=== PATIENT | female | born 1935 | race Caucasian/White ===

== ENCOUNTER 2023-07-09 06:57 | Outpatient (REF) | payer MEDICARE, OTHER, SELFPAY ==
[2023-07-09 11:12] LABS: MANUAL DIFF FLAG NO
[2023-07-09 11:41] LABS: Basophils Absolute Auto 0.1 X10*3/uL (0.0-0.2); Basophils Percent Auto 0.7 % (0-2); Eosinophils Absolute Auto 0.5 X10*3/uL (0.0-0.4); Eosinophils Percent Auto 5.3 % (0-4); Hematocrit 43.3 % (37.0-47.0); Hemoglobin 13.8 g/dl (12.0-16.0); Imm Gran Abs Auto 0.04 X10*3/uL (0.00-0.03); Imm Gran Pct Auto 0.5 % (0.0-0.4); Lymphocytes Absolute Auto 2.1 X10*3/uL (1.2-4.9); Lymphocytes Percent Auto 24.3 % (20-40); Mean Corpuscular HGB Conc 31.9 g/dl (31.0-35.0); Mean Corpuscular Hemoglobin 30.8 pg (27.0-33.0); Mean Corpuscular Volume 96.7 fL (80.0-98.0); Mean Platelet Volume 11.3 fL (9.4-12.3); Monocytes Absolute Auto 0.8 X10*3/uL (0.1-1.2); Monocytes Percent Auto 9.2 % (2-11); Neutrophils Absolute Auto 5.1 x10*3/uL (2.0-8.3); Platelet Count 248 X10*3/uL (160-400); Red Blood Count 4.48 X10*6/uL (4.20-5.50); Red Cell Distribution Width 13.2 % (11.0-16.0); White Blood Count 8.4 X10*3/uL (4.8-10.8)
[2023-07-09 12:06] LABS: Alanine Aminotransferase 18 U/L (0-31); Albumin Level 3.8 g/dL (3.5-5.0); Alkaline Phosphatase 114 U/L (39-117); Anion Gap 12 (12-20); Aspartate Amino Transferase 22 U/L (5-31); Bilirubin Total 0.7 mg/dL (0.0-1.0); Blood Urea Nitrogen 16 mg/dL (9-16); Carbon Dioxide 25 mmol/L (22-29); Chloride 106 mmol/L (96-108); Cholesterol 139 mg/dL; Estimated Glomerular Filt Rate > 60; Glucose Random 91 mg/dL (60-115); HDL Cholesterol 45 mg/dL; LDL Cholesterol Calculated 83 mg/dl; Potassium 4.3 mmol/L (3.3-5.1); Sodium 139 mmol/L (135-145); TSH reflex Free T4 1.12 uIU/mL (0.32-4.0); Total Protein 6.9 g/dL (6.5-8.0); Triglycerides 58 mg/dL
== END 2023-07-09 06:58 | disposition home or self-care (01) ==
LOC: HO.HMGCLDS 06:57
PROVIDERS: PCP Internal Medicine; Visit Provider Internal Medicine
DX: E03.9 Hypothyroidism, unspecified (principal); E78.00 Pure hypercholesterolemia, unspecified; I10 Essential (primary) hypertension
CPT/HCPCS: 36415; 80053; 80061; 84443; 85025

== ENCOUNTER 2023-07-14 10:16 | Outpatient (AMB) | payer MEDICARE, SELFPAY ==
--- NOTE | 2023-07-14 10:17 | MHC.OFFVIS ---
Intake Vital Signs 07/14/23 10:18 Height 4 ft 11 in Weight 112 lb 6.972 oz BMI 22.7 BP 126/62 Blood Pressure Location Lt brachial Position Sitting Pulse 82 Pulse Source Doppler Pulse Oximetry (%) 96 Oxygen Delivery Method Room Air Intake Visit Reasons: pulmonary nodules Allergies Penicillins Allergy (Mild, Verified 07/14/23 10:22) UNKNOWN Sulfa (Sulfonamide Antibiotics) Allergy (Mild, Verified 07/14/23 10:22) UNKNOWN penicillin V Allergy (Unknown, Verified 07/14/23 10:22) rash tiotropium [Spiriva with HandiHaler] Allergy (Unknown, Verified 07/14/23 10:22) unknown alendronate sodium [Fosamax] Adverse Reaction (Unknown, Verified 07/14/23 10:22) GI upset simvastatin Adverse Reaction (Unknown, Verified 07/14/23 10:22) hepatoxicity HPI pulmonary nodules HPI Details 87-year-old lady, former 30+ pack-year smoker, quit over 30 years prior, with prior history of community-acquired pneumonia requiring hospitalization in August of 2021, symptomatically improved, however patient has had a CT chest that shows incomplete resolution of her prior pneumonic infiltrates and a new cystic lesion at the site of prior dense infiltrate.? After that patient has had two follow-up CT scans that shows significant improvement in underlying findings.? She continues to use Symbicort and albuterol MDI with good control of her underlying symptoms.? She denies any recent exacerbations. [facility] Medical History Age related osteoporosis Anemia COPD (chronic obstructive pulmonary disease) COPD (chronic obstructive pulmonary disease) Heart murmur Hypothyroidism Macular degeneration Subcutaneous mass Trigger finger, left Surgical History History of carpal tunnel release History of hemiarthroplasty of left hip Social History Household Members: None Household Members Other:: Daughter lives upstairs Housing: House Are you a primary home care provider to a significant other at home: No Do you presently have visiting nurse or other home services: No Alcohol intake: never Patient Tobacco Use Status: Former Tobacco user service: No Current occupational status: retired Current occupation: Right Handed Review of Systems Const Denies daytime sleepiness, Denies excessive sweating, Denies fatigue, Denies fever(s), Denies lethargy, Denies malaise, Denies night sweats, Denies snoring and Denies weight loss Eyes Denies blurry vision and Denies itchy eyes ENT Denies nasal congestion, Denies post nasal drip, Denies sinus pain, Denies sinus pressure and Denies other ( Thrush) Card Denies chest pain, Denies pedal edema, Denies dyspnea, Denies orthopnea and Denies paroxysmal nocturnal dyspnea Resp Denies cough, Denies hemoptysis, Denies excessive phlegm production, Denies dyspnea, Denies snoring and Denies wheezing GI Denies abdominal pain and Denies heartburn Musc Denies myalgias, Denies arthralgias and Denies joint swelling Skin/Breast Denies rash Neuro Denies memory loss and Denies seizure-like activity Psych Denies abnormal sleep pattern, Denies anxiety and Denies memory loss Endo Denies excessive sweating, Denies fatigue and Denies heat intolerance Martín/Lymph Denies easy bruising Aller/Immun Denies itchy eyes, Denies seasonal rhinorrhea and Denies wheezing Physical Exam Vital Signs: Last Vital Signs Pulse 82 07/14/23 10:18 BP 126/62 07/14/23 10:18 Pulse Ox 96 07/14/23 10:18 Oxygen Delivery Method Room Air 07/14/23 10:18 BMI result Body Mass Index 22.7 Const General: no acute distress and alert Nutritional Appearance: not obese Orientation/consciousness: Other orientation findings ( oriented) HEENT Head: Yes atraumatic Eyes General: appearance normal, both eyes and all related structures Sclerae: sclerae normal EOM: EOMs intact bilaterally Neck Neck: Yes supple Lymphatic: no lymphadenopathy noted Resp Effort & Inspection: normal respiratory effort and no use of accessory muscles Auscultation: clear to auscultation bilaterally Cardio Rate: regular rate Rhythm: regular rhythm Heart sounds: no gallops, no murmurs and no rubs Skin General skin exam: other ( warm) Extrem General: No clubbing, No cyanosis and No edema Assessment & Plan Assessment & Plan (1) Emphysema lung: Code(s): J43.9 - Emphysema, unspecified Plan: Well controlled on current regimen of Symbicort and albuterol MDI/nebs. Continue current regimen. (2) Abnormal CT scan, chest: Code(s): R93.89 - Abnormal findings on diagnostic imaging of other specified body structures Plan: Results of a 2nd follow-up CT chest reviewed, continues improvement in dominant pulmonary nodule and no changing cystic disease. No further imaging follow-up is required. Coding Level of Care Code Est Pt Level 4 (95886) Diagnoses Emphysema lung J43.[address] scan, chest R93.89
[2023-07-14 10:18] VITALS: BP 126/62; PULSE 82; O2SAT 96; BMI 22.7
== END 2023-07-14 10:34 | disposition home or self-care (01) ==
PROVIDERS: PCP Internal Medicine; Visit Provider Internal Medicine Pulmonary Disease
DX: J43.9 Emphysema, unspecified (principal); R93.89 Abnormal findings on diagnostic imaging of other specified body structures
CPT/HCPCS: 99214

== ENCOUNTER → 2023-07-14 10:16 | Outpatient (BNVA) | payer MEDICARE, OTHER, SELFPAY | PROVIDERS: PCP Internal Medicine; Visit Provider Internal Medicine Pulmonary Disease | DX: J43.9 Emphysema, unspecified (principal); R93.89 Abnormal findings on diagnostic imaging of other specified body structures | CPT/HCPCS: 99212 ==

== ENCOUNTER 2023-08-09 09:06 | Outpatient (AMB) | payer MEDICARE, SELFPAY ==
--- NOTE | 2023-08-09 09:12 | A.OFFVIS_ITS ---
Intake Intake Visit Reasons: OV- Primary osteoarthritis, right shoulder Intake Note: The patient agreed to use of a biomedical engineering internship during this encounter. Scribed for Dr. Tirso Ramos by Shila Espitia, biomedical engineering internship, on 08/09/2023 at 9:38 am EST. Allergies Penicillins Allergy (Mild, Verified 08/09/23 09:29) UNKNOWN Sulfa (Sulfonamide Antibiotics) Allergy (Mild, Verified 08/09/23 09:29) UNKNOWN penicillin V Allergy (Unknown, Verified 08/09/23 09:29) rash tiotropium [Spiriva with HandiHaler] Allergy (Unknown, Verified 08/09/23 09:29) unknown alendronate sodium [Fosamax] Adverse Reaction (Unknown, Verified 08/09/23 09:29) GI upset simvastatin Adverse Reaction (Unknown, Verified 08/09/23 09:29) hepatoxicity HPI OV- Primary osteoarthritis, right shoulder HPI Details Martha is an 87 year old right hand dominant female who presents today for a follow up of her right shoulder OA. Last injection was done on 10/13/2021 in the left knee and right shoulder. Patient reports that this injection was helpful and he would like to repeat injection today. She is also complaining of left knee pain today. Martha Stout is an 87 year old right hand dominant female who presents today for a follow up of her right shoulder OA. States she is active and tries to walk everyday. States she is experiencing pain in right shoulder and has trouble lifting arm up. States she is interested injections in right shoulder and left knee and last time she received an injection was her last visit in office. States her pain does not wake her up at night but can not put pressure on it. [facility] Medical History Age related osteoporosis Anemia COPD (chronic obstructive pulmonary disease) COPD (chronic obstructive pulmonary disease) Heart murmur Hypothyroidism Macular degeneration Subcutaneous mass Trigger finger, left Surgical History History of carpal tunnel release History of hemiarthroplasty of left hip Social History (Reviewed 07/14/23 @ 10:23 by Zakiya Magallanes [facility]) Household Members: None Household Members Other:: Daughter lives upstairs Housing: House Are you a primary furnace caretaker to a significant other at home: No Do you presently have visiting nurse or other home services: No Alcohol intake: never Patient Tobacco Use Status: Former Tobacco user service: No Current occupational status: retired Current occupation: Right Handed Physical Exam Extrem Other: Minimal ER right shoulder without pain. pain with abduction. Left knee ttp medial joint line. Office Procedures Joint Injection/Drain Joint Injection/Drain Details: Injected 1 mL of Decadron and 3 mL 1% lidocaine and 3 mL of 0.25% Marcaine. Site was prepped using aseptic technique. Patient tolerated the procedure well. Primary Site: right shoulder Secondary Site: left knee Coding - Large joint - Glenohumeral/Tronchanteric Bursa/Intraarticular Procedure code (CPT) selection complete Results Reviewed Results Reviewed: 08/09/23 09:38 BUPivacaine MPF 0.25 % [Sensorcaine-MPF 0.25% 10 ML] 10 ml .ROUTE .STK-MED ONE Lidocaine HCl 1 % [Xylocaine 1 %] 2 ml .ROUTE .STK-MED ONE Lidocaine HCl 2 % MPF [Xylocaine 2 % MPF] 5 ml .ROUTE .STK-MED ONE dexAMETHasone sod phosphate [Decadron] 4 mg .ROUTE .STK-MED ONE I personally reviewed relevant radiographs. Assessment & Plan Assessment & Plan (1) Primary osteoarthritis, right shoulder: Code(s): M19.011 - Primary osteoarthritis, right shoulder Plan: Injection (2) Primary osteoarthritis of left knee: Code(s): M17.12 - Unilateral primary osteoarthritis, left knee Plan: injection Coding Level of Care Code Est Pt Level 3 (57736) Diagnoses Primary osteoarthritis, right shoulder M19.011 Primary osteoarthritis of left knee M17.12 CPT Codes Coding - Large joint: 90217 - Large joint ([id number]) Coding - Joint 7: - Glenohumeral/Tronchanteric Bursa/Intraarticular ([id number])
== END 2023-08-09 10:41 | disposition home or self-care (01) ==
PROVIDERS: PCP Internal Medicine; Visit Provider Orthopaedic Surgery
DX: M19.011 Primary osteoarthritis, right shoulder (principal); M17.12 Unilateral primary osteoarthritis, left knee
CPT/HCPCS: 20610; 99213

== ENCOUNTER → 2023-08-09 09:06 | Outpatient (BNVA) | payer MEDICARE, SELFPAY | PROVIDERS: PCP Internal Medicine; Visit Provider Orthopaedic Surgery | DX: M19.011 Primary osteoarthritis, right shoulder (principal); M17.12 Unilateral primary osteoarthritis, left knee | CPT/HCPCS: 20610; 99212; J1100 ==

== ENCOUNTER 2023-10-11 08:48 | Outpatient (AMB) | payer MEDICARE, SELFPAY ==
--- NOTE | 2023-10-11 08:51 | MHC.OFFVIS ---
Intake Vital Signs 10/11/23 08:51 Height 4 ft 11 in Intake Visit Reasons: OV- Primary osteoarthritis, right shoulder Intake Note: Martha is an 87 year old right hand dominant female who presents today for a follow up of her right shoulder OA. Last injection was done on 08/09/23. Patient rpeorts that this injection was not helpful. She explains that she has pain at the base of bicep that radiates up to shoulder. She has pain and limited painful ROM. Allergies Penicillins Allergy (Mild, Verified 10/11/23 08:52) UNKNOWN Sulfa (Sulfonamide Antibiotics) Allergy (Mild, Verified 10/11/23 08:52) UNKNOWN penicillin V Allergy (Unknown, Verified 10/11/23 08:52) rash tiotropium [Spiriva with HandiHaler] Allergy (Unknown, Verified 10/11/23 08:52) unknown alendronate sodium [Fosamax] Adverse Reaction (Unknown, Verified 10/11/23 08:52) GI upset simvastatin Adverse Reaction (Unknown, Verified 10/11/23 08:52) hepatoxicity HPI OV- Primary osteoarthritis, right shoulder HPI Details Martha Stout is an 87 year old right hand dominant female who presents today for a follow up of her right shoulder OA. States she is experiencing pain in right shoulder which radiates into her biceps, and has trouble lifting arm up. She found no relief from her previous injection on 08/09/23, and would like to try a repeat injection today. [facility] Medical History Age related osteoporosis Anemia COPD (chronic obstructive pulmonary disease) COPD (chronic obstructive pulmonary disease) Heart murmur Hypothyroidism Macular degeneration Subcutaneous mass Trigger finger, left Surgical History History of carpal tunnel release History of hemiarthroplasty of left hip Social History Household Members: None Household Members Other:: Daughter lives upstairs Housing: House Are you a primary care management specialist to a significant other at home: No Do you presently have visiting nurse or other home services: No Alcohol intake: never Patient Tobacco Use Status: Former Tobacco user service: No Current occupational status: retired Current occupation: Right Handed Review of Systems Const All systems reviewed & are unremarkable except as noted in HPI and below Physical Exam Const General: no acute distress, alert and awake Orientation/consciousness: patient oriented x3 HEENT Head: Yes normocephalic and Yes atraumatic Eyes EOM: EOMs intact bilaterally Resp Effort & Inspection: normal respiratory effort and able to speak in complete sentences Cardio Jugular venous distension: no JVD Skin General skin exam: turgor normal Rashes: no rashes Neuro General: patient oriented x3 Extrem Other: Minimal ER right shoulder without pain. pain with abduction. Psych Appearance: grossly normal Affect: normal affect Attitude: cooperative Office Procedures Joint Injection/Drain Joint Injection/Drain Details: Injected 1 mL of Decadron and 3 mL 1% lidocaine and 3 mL of 0.25% Marcaine. Site was prepped using aseptic technique. Patient tolerated the procedure well. Primary Site: right shoulder Approach Used: posterolateral Coding - Large joint Procedure code (CPT) selection complete Assessment & Plan Assessment & Plan (1) Primary osteoarthritis, right shoulder: Code(s): M19.011 - Primary osteoarthritis, right shoulder Plan: This is an 87 year old woman with right shoulder OA. She has pain with daily activity, worse at night, and limited ROM. She is not a surgical candidate, is unable to take NSAIDs, and found no relief from her previous injection on 08/09/23. I discussed her diagnosis and treatment options. I injected her right shoulder today, which she tolerated well. She can follow up prn. Plan Scribed for Tirso Ramos MD by Ramírez Hahn, phlebotomist medical lab assistant, on 10/11/23 at 9:15 AM, EST. Coding Level of Care Code Est Pt Level 3 (49335) Diagnoses Primary osteoarthritis, right shoulder M19.011 CPT Codes Coding - Large joint: 46814 - Large joint ([id number])
== END 2023-10-11 09:28 | disposition home or self-care (01) ==
PROVIDERS: PCP Internal Medicine; Visit Provider Orthopaedic Surgery
DX: M19.011 Primary osteoarthritis, right shoulder (principal)
CPT/HCPCS: 20610; 99213

== ENCOUNTER → 2023-10-11 08:48 | Outpatient (BNVA) | payer MEDICARE, SELFPAY | PROVIDERS: PCP Internal Medicine; Visit Provider Orthopaedic Surgery | DX: M19.011 Primary osteoarthritis, right shoulder (principal) | CPT/HCPCS: 20610; 99212; J0665; J1100 ==

== ENCOUNTER 2023-11-12 20:50 | Emergency (ER) | payer MEDICARE, SELFPAY ==
[2023-11-12 21:05] VITALS: BP 175/101; PULSE 88; RESP 16; TEMP 36.9; O2SAT 94; BMI 22.2
[2023-11-12 21:55] LABS: MANUAL DIFF FLAG NO
[2023-11-12 22:04] LABS: Basophils Absolute Auto 0.1 X10*3/uL (0.0-0.2); Basophils Percent Auto 0.7 % (0-2); Eosinophils Absolute Auto 0.5 X10*3/uL (0.0-0.4); Eosinophils Percent Auto 6.3 % (0-4); Hematocrit 41.7 % (37.0-47.0); Hemoglobin 13.3 g/dl (12.0-16.0); Imm Gran Abs Auto 0.03 X10*3/uL (0.00-0.03); Imm Gran Pct Auto 0.4 % (0.0-0.4); Lymphocytes Percent Auto 27.1 % (20-40); Mean Corpuscular HGB Conc 31.9 g/dl (31.0-35.0); Mean Corpuscular Hemoglobin 30.3 pg (27.0-33.0); Mean Platelet Volume 10.7 fL (9.4-12.3); Monocytes Absolute Auto 0.8 X10*3/uL (0.1-1.2); Monocytes Percent Auto 11.5 % (2-11); Neutrophils Absolute Auto 3.9 x10*3/uL (2.0-8.3); Platelet Count 224 X10*3/uL (160-400); Red Blood Count 4.39 X10*6/uL (4.20-5.50); Red Cell Distribution Width 13.4 % (11.0-16.0); White Blood Count 7.3 X10*3/uL (4.8-10.8)
[2023-11-12 22:13] LABS: Alanine Aminotransferase 25 U/L (0-31); Albumin Level 4.1 g/dL (3.5-5.0); Alkaline Phosphatase 127 U/L (39-117); Anion Gap 11 (12-20); Aspartate Amino Transferase 29 U/L (5-31); Bilirubin Total 0.4 mg/dL (0.0-1.0); Blood Urea Nitrogen 15 mg/dL (9-16); Calcium 9.4 mg/dL (8.4-10.2); Carbon Dioxide 26 mmol/L (22-29); Chloride 106 mmol/L (96-108); Creatinine Clr Calc Pharmacy 33.5; Estimated Glomerular Filt Rate > 60; Glucose Random 90 mg/dL (60-115); Potassium 4.3 mmol/L (3.3-5.1); Sodium 139 mmol/L (135-145); Total Protein 7.2 g/dL (6.5-8.0)
[2023-11-12] MEDS: Silver Nitrate Applicator STICK..EA. 1 APPL TOPICAL (22:53)
[2023-11-12 22:54] VITALS: BP 172/82; PULSE 88; RESP 20; O2SAT 98
--- NOTE | 2023-11-12 22:54 | ED_ITS ---
History of Present Illness General Chief Complaint: Epistaxis Stated Complaint: Nose bleed Time Seen by Provider: 11/12/23 22:33 Source: patient Mode of arrival: ambulatory Limitations: no limitations History of Present Illness HPI Narrative: Patient history of frequent nosebleeds for last few months not on any anticoagulation except for aspirin is usually wakes up with small amount of low today left nose started bleeding since afternoon did not stop. Related Data Home Medications Medication Instructions Recorded Confirmed albuterol sulfate 90 mcg/actuation 2 puff PO TID 08/23/20 03/02/23 aerosol inhaler atorvastatin 40 mg tablet 40 mg PO BEDTIME 08/23/20 03/02/23 levothyroxine 75 mcg tablet 75 mcg PO DAILY 08/23/20 03/02/23 omeprazole 20 mg capsule,delayed 20 mg PO BID 08/23/20 03/02/23 release calcium carbonate 600 mg-vitamin 1 cap PO BEDTIME 09/13/20 03/02/23 D3 5 mcg (200 unit) capsule (Calcium 600 + D(3)) albuterol sulfate 2.5 mg/3 mL 1 amp inhalation Q4H PRN wheezing 01/17/21 03/02/23 (0.083 %) solution for nebulization budesonide-formoterol HFA 160 2 puff inhalation BID 01/17/21 03/02/23 mcg-4.5 mcg/actuation aerosol inhaler (Symbicort) PreserVision AREDS-2 1 cap PO BID 08/23/21 03/02/23 aspirin 81 mg capsule 81 mg PO DAILY 08/23/21 03/02/23 amlodipine 5 mg tablet 5 mg PO DAILY 10/13/21 03/02/23 trimethoprim 100 mg tablet 100 mg PO DAILY 09/25/22 03/02/23 artifi.tears(hypromellose)(PF) 0.3 2 drp ophthalmic (eye) Q6H PRN Dry 11/03/22 03/02/23 % eye drops Eye(S) ascorbic acid (vitamin C) 500 mg 1 tab PO DAILY 11/03/22 03/02/23 tablet (Vitamin C) cyanocobalamin (vitamin B-12) 1,000 mcg PO DAILY 11/03/22 03/02/23 1,000 mcg tablet ferrous gluconate 324 mg (37.5 mg 1 tab PO DAILY 11/03/22 03/02/23 iron) tablet folic acid 1 mg tablet 1 mg PO DAILY 11/03/22 03/02/23 Allergies Allergy/AdvReac Type Severity Reaction Status Date / Time Penicillins Allergy Mild UNKNOWN Verified 10/11/23 08:52 Sulfa (Sulfonamide Allergy Mild UNKNOWN Verified 10/11/23 08:52 Antibiotics) penicillin V Allergy Unknown rash Verified 10/11/23 08:52 tiotropium Allergy Unknown unknown Verified 10/11/23 08:52 [Spiriva with HandiHaler] alendronate sodium [Fosamax] AdvReac Unknown GI upset Verified 10/11/23 08:52 simvastatin AdvReac Unknown hepatoxicit Verified 10/11/23 08:52 y Review of Systems 2 Review of Systems: Yes all other systems are reviewed and are negative [facility] Past Medical History Medical History COPD (chronic obstructive pulmonary disease) Subcutaneous mass Trigger finger, left Anemia Heart murmur Age related osteoporosis COPD (chronic obstructive pulmonary disease) Macular degeneration Hypothyroidism Surgical History History of hemiarthroplasty of left hip History of carpal tunnel release Social History Social History Household Members: None Household Members Other:: Daughter lives upstairs Housing: House Are you a primary care information associate to a significant other at home: No Do you presently have visiting nurse or other home services: No Alcohol intake: never Patient Tobacco Use Status: Former Tobacco user Advance Directives: Yes Advance Directives on File: No service: No Current occupational status: retired Current occupation: Right Handed Physical Exam 2 Vital Signs: Vital Signs: Last Vital Signs Temp 98.5 F 11/12/23 21:05 Pulse 88 11/12/23 22:54 Resp 20 11/12/23 22:54 BP 172/82 H 11/12/23 22:54 Pulse Ox 98 11/12/23 22:54 O2 Del Method Room Air 11/12/23 22:54 BMI result Body Mass Index 22.2 Appearance: Alert. Oriented X3. No acute distress. Eyes: No pallor or icterus ENT: Pharynx normal. Oral Mucosa moist blood clot in left nostril no active bleeding Neck: Normal inspection. Neck supple. CVS: Normal heart rate and rhythm. Pulses normal. Respiratory: No respiratory distress. Equal air entry bilateral, Medications Administered Discontinued Medications Generic Name Dose Route Start Last Admin Trade Name Eusebio PRN Reason Stop Dose Admin Silver Nitrate 1 appl 11/12/23 22:47 11/12/23 22:53 Silver Nitrate Applicator Stick..Ea. TOPICAL 11/12/23 22:48 1 appl ONCE ONE Administration Medical Decision Making Medical Decision Making [facility] Narrative: Patient with frequent anterior nosebleed patient in the left nostril no active bleeding in the ER but had blood clots which was removed by blowing there wasa small area in the anterior septal which seems like source of bleeding which was cauterized using silver nitrate Lab Data [facility] Lab Attestation statement: I reviewed the patient's lab results. 11/12/23 21:47 11/12/23 21:47 Labs: Lab Results 11/12/23 Range/Units 21:47 WBC 7.3 (4.8-10.8) X10*3/uL RBC 4.39 (4.20-5.50) X10*6/uL Hgb 13.3 (12.0-16.0) g/dl Hct 41.7 (37.0-47.0) % MCV 95.0 (80.0-98.0) fL MCH 30.3 (27.0-33.0) pg MCHC 31.9 (31.0-35.0) g/dl RDW 13.4 (11.0-16.0) % Plt Count 224 (160-400) X10*3/uL MPV 10.7 (9.4-12.3) fL Immature Gran % (Auto) 0.4 (0.0-0.4) % Neut % (Auto) 54.0 (45-73) % Lymph % (Auto) 27.1 (20-40) % [place] % (Auto) 11.5 H (2-11) % Eos % (Auto) 6.3 H (0-4) % Baso % (Auto) 0.7 (0-2) % Lymph # (Auto) 2.0 (1.2-4.9) X10*3/uL [place] # (Auto) 0.8 (0.1-1.2) X10*3/uL Eos # (Auto) 0.5 H (0.0-0.4) X10*3/uL Baso # (Auto) 0.1 (0.0-0.2) X10*3/uL Abs Immat Gran (auto) 0.03 (0.00-0.03) X10*3/uL Absolute Neuts (auto) 3.9 (2.0-8.3) x10*3/uL Absolute Nucleated RBC 0.000 (0.0-0.012) X10*3/uL Nucleated RBC % (auto) 0.0 (0.0-0.2) /100WBC Sodium 139 (135-145) mmol/L Potassium 4.3 (3.3-5.1) mmol/L Chloride 106 (96-108) mmol/L Carbon Dioxide 26 (22-29) mmol/L Anion Gap 11 L (12-20) BUN 15 (9-16) mg/dL Creatinine 0.79 (0.5-1.4) mg/dL Estim Creat Clear Calc 33.5 Estimated GFR > 60 Random Glucose 90 (60-115) mg/dL Calcium 9.4 (8.4-10.2) mg/dL Total Bilirubin 0.4 (0.0-1.0) mg/dL AST 29 (5-31) U/L ALT 25 (0-31) U/L Alkaline Phosphatase 127 H (39-117) U/L Total Protein 7.2 (6.5-8.0) g/dL Albumin 4.1 (3.5-5.0) g/dL Procedures Epistaxis Control Time Out Performed: Yes Nostril: Yes left Direct inspection: Yes anterior source identified Direct inspection method: Yes otoscope Clots removed by: Yes blowing nose Epistaxis treatment: Yes silver nitrate cautery Results of treatment: Yes bleeding controlled and Yes treatment well tolerated Complications: Yes none Discharge Plan Discharge Clinical Impression: Acute anterior epistaxis Patient Disposition: Home, Self-Care Instructions: Nosebleed (ED) Additional Instructions: Local care as advised Follow-up with ENT if epistaxis continues Prescriptions: No Action Calcium 600 + D(3) 600 mg calcium- 200 unit Capsule 1 cap PO BEDTIME albuterol sulfate 2.5 mg /3 mL (0.083 %) solution for nebulization 1 amp inhalation Q4H PRN (Reason: wheezing) budesonide-formoterol [Symbicort] 160-4.5 mcg/actuation HFA aerosol inhaler 2 puff inhalation BID ascorbic acid (vitamin C) [Vitamin C] 500 mg tablet 1 tab PO DAILY ferrous gluconate 324 mg (37.5 mg iron) tablet 1 tab PO DAILY cyanocobalamin (vitamin B-12) 1,000 mcg Tablet 1,000 mcg PO DAILY folic acid 1 mg Tablet 1 mg PO DAILY artifi.tears(hypromellose)(PF) 0.3 % Drops 2 drp OPHTHALMIC (EYE) Q6H PRN (Reason: Dry Eye(S)) aspirin 81 mg Capsule 81 mg PO DAILY PreserVision AREDS-2 1 cap PO BID albuterol sulfate 90 mcg/actuation HFA aerosol inhaler 2 puff PO TID omeprazole 20 mg capsule,delayed release(DR/EC) 20 mg PO BID levothyroxine 75 mcg tablet 75 mcg PO DAILY atorvastatin 40 mg tablet 40 mg PO BEDTIME amlodipine 5 mg tablet 5 mg PO DAILY trimethoprim 100 mg tablet 100 mg PO DAILY Hold Instructions: Resume on 11/09/22. Referrals: Isma Ledezma [Physician] - 1 week
== END 2023-11-12 23:00 | disposition home or self-care (01) ==
PROVIDERS: Emergency Provider Internal Medicine; PCP Internal Medicine
DX: R04.0 Epistaxis (principal); Z79.82 Long term (current) use of aspirin
CPT/HCPCS: 36415; 80053; 85025; 99283

== ENCOUNTER 2024-02-18 09:56 | Outpatient (AMB) | payer MEDICARE, SELFPAY ==
[2024-02-18 10:10] VITALS: BMI 22.2
--- NOTE | 2024-02-18 10:10 | A.OFFVIS_ITS ---
Intake Vital Signs 02/18/24 10:10 Height 4 ft 11 in Weight 110 lb BMI 22.2 Intake Visit Reasons: OV-Left knee pain follow up Intake Note: Martha is an 88 year old female who presents today for a follow up of her left knee OA. Last Injection was administered on 08/09/23. Hx of right shoulder injection 10/11/23. She explains that the left knee was swollen, but has resolved. She does complain of right shoulder pain, the injection was only helpful for a few days. Allergies Penicillins Allergy (Mild, Verified 02/18/24 10:13) UNKNOWN Sulfa (Sulfonamide Antibiotics) Allergy (Mild, Verified 02/18/24 10:13) UNKNOWN penicillin V Allergy (Unknown, Verified 02/18/24 10:13) rash tiotropium [Spiriva with HandiHaler] Allergy (Unknown, Verified 02/18/24 10:13) unknown alendronate sodium [Fosamax] Adverse Reaction (Unknown, Verified 02/18/24 10:13) GI upset simvastatin Adverse Reaction (Unknown, Verified 02/18/24 10:13) hepatoxicity HPI OV-Left knee pain follow up HPI Details Martha is an 88 year old female who presents today for a follow up of her left knee OA. Last Injection was administered on 08/09/23. Hx of right shoulder injection 10/11/23. She explains that the left knee was swollen, but has resolved. She does complain of right shoulder pain, the injection was only helpful briefly. [facility] Medical History COPD (chronic obstructive pulmonary disease) Subcutaneous mass Trigger finger, left Anemia Heart murmur Age related osteoporosis COPD (chronic obstructive pulmonary disease) Macular degeneration Hypothyroidism Surgical History History of hemiarthroplasty of left hip History of carpal tunnel release Social History Household Members: None Household Members Other:: Daughter lives upstairs Housing: House Are you a primary care taker to a significant other at home: No Do you presently have visiting nurse or other home services: No Alcohol intake: never Patient Tobacco Use Status: Former Tobacco user service: No Current occupational status: retired Current occupation: Right Handed Physical Exam Vital Signs: BMI result Body Mass Index 22.2 Extrem Other: Right shoulder with + Hawkin's and Neer. Scapular recruitment with abduction. ER to 45 bilaterally. Left knee with no effusion TTP medial compartment Office Procedures Joint Injection/Drain Joint Injection/Drain Details: Injected 1 mL of Decadron and 3 mL 1% lidocaine and 3 mL of 0.25% Marcaine. Site was prepped using aseptic technique. Patient tolerated the procedure well. Primary Site: right shoulder Secondary Site: left knee Coding 73435 - Large joint 24774 - Glenohumeral/Tronchanteric Bursa/Intraarticular Procedure code (CPT) selection complete Assessment & Plan Assessment & Plan (1) Primary osteoarthritis of left knee: Code(s): M17.12 - Unilateral primary osteoarthritis, left knee Plan: Injected left knee. Continue activity as tolerated (2) Primary osteoarthritis, right shoulder: Code(s): M19.011 - Primary osteoarthritis, right shoulder Plan: Injected right shoulder SAS. Continue activity as tolerated. Coding Level of Care Code Est Pt Level 4 (73968) Diagnoses Primary osteoarthritis of left knee M17.12 Primary osteoarthritis, right shoulder M19.011 CPT Codes Coding - 34906 Large joint: 90006 - Large joint ([id number]) Coding - Joint 7: 24515 - Glenohumeral/Tronchanteric Bursa/Intraarticular ([id number])
== END 2024-02-18 11:26 | disposition home or self-care (01) ==
PROVIDERS: PCP Internal Medicine; Visit Provider Orthopaedic Surgery
DX: M17.12 Unilateral primary osteoarthritis, left knee (principal); M19.011 Primary osteoarthritis, right shoulder
CPT/HCPCS: 20610; 99214

== ENCOUNTER → 2024-02-18 09:56 | Outpatient (BNVA) | payer MEDICARE, SELFPAY | PROVIDERS: PCP Internal Medicine; Visit Provider Orthopaedic Surgery | DX: M17.12 Unilateral primary osteoarthritis, left knee (principal); M19.011 Primary osteoarthritis, right shoulder | CPT/HCPCS: 20610; 99212; J0665; J1100 ==

== ENCOUNTER 2024-04-12 07:35 | Emergency (ER) | payer MEDICARE, SELFPAY ==
[2024-04-12 07:40] VITALS: BP 151/71; PULSE 82; RESP 16; TEMP 36.8; O2SAT 96; BMI 22.2
--- NOTE | 2024-04-12 08:46 | ED.GENADULT ---
HPI - General Adult General Chief complaint: Skin/Abscess/Foreign Body Stated complaint: skin on arm pushed together Time Seen by Provider: 04/12/24 08:46 Source: patient and family Mode of arrival: ambulatory Limitations: no limitations History of Present Illness ED Provider: Eric Lyles NP HPI narrative: Patient is an 88-year-old female with history of COPD, anemia, hypothyroidism presenting to the emergency department with complaint of skin tear to right forearm. Patient and daughter state that she was putting trash in the trash bin prior to arrival, when the wooden lid fell onto her right forearm. They applied mupirocin ointment that patient had left over from a prior skin tear and apply dressings. Patient complains of pain to the area. She is not anticoagulated, just on daily aspirin. Daughter called PCP office and last tetanus vaccine was 2015. complaint: right forearm injury Onset (ago): minute(s) Location: right and upper extremity Severity: moderate Quality: burning Pain Consistency: colicky Relieving factors: rest Exacerbating factors: other (palpation) Associated symptoms: denies other symptoms Treatments prior to arrival: other Related Data Home Medications ?Medication ?Instructions ?Recorded ?Confirmed albuterol sulfate 90 mcg/actuation 2 puff PO TID 08/23/20 03/02/23 aerosol inhaler atorvastatin 40 mg tablet 40 mg PO BEDTIME 08/23/20 03/02/23 levothyroxine 75 mcg tablet 75 mcg PO DAILY 08/23/20 03/02/23 omeprazole 20 mg capsule,delayed 20 mg PO BID 08/23/20 03/02/23 release calcium carbonate 600 mg-vitamin 1 cap PO BEDTIME 09/13/20 03/02/23 D3 5 mcg (200 unit) capsule (Calcium 600 + D(3)) albuterol sulfate 2.5 mg/3 mL 1 amp inhalation Q4H PRN wheezing 01/17/21 03/02/23 (0.083 %) solution for nebulization budesonide-formoterol HFA 160 2 puff inhalation BID 01/17/21 03/02/23 mcg-4.5 mcg/actuation aerosol inhaler (Symbicort) PreserVision AREDS-2 1 cap PO BID 08/23/21 03/02/23 aspirin 81 mg capsule 81 mg PO DAILY 08/23/21 03/02/23 amlodipine 5 mg tablet 5 mg PO DAILY 10/13/21 03/02/23 trimethoprim 100 mg tablet 100 mg PO DAILY 09/25/22 03/02/23 artifi.tears(hypromellose)(PF) 0.3 2 drp ophthalmic (eye) Q6H PRN Dry 11/03/22 03/02/23 % eye drops Eye(S) ascorbic acid (vitamin C) 500 mg 1 tab PO DAILY 11/03/22 03/02/23 tablet (Vitamin C) cyanocobalamin (vitamin B-12) 1,000 mcg PO DAILY 11/03/22 03/02/23 1,000 mcg tablet ferrous gluconate 324 mg (37.5 mg 1 tab PO DAILY 11/03/22 03/02/23 iron) tablet folic acid 1 mg tablet 1 mg PO DAILY 11/03/22 03/02/23 Previous Rx's ?Medication ?Instructions ?Recorded mupirocin 2 % topical ointment 1 appl topical BID #15 grams 04/12/24 Allergies Allergy/AdvReac Type Severity Reaction Status Date / Time Penicillins Allergy Mild UNKNOWN Verified 04/12/24 07:41 Sulfa (Sulfonamide Allergy Mild UNKNOWN Verified 04/12/24 07:41 Antibiotics) penicillin V Allergy Unknown rash Verified 04/12/24 07:41 tiotropium Allergy Unknown unknown Verified 04/12/24 07:41 [Spiriva with HandiHaler] alendronate sodium [Fosamax] AdvReac Unknown GI upset Verified 04/12/24 07:41 simvastatin AdvReac Unknown hepatoxicit Verified 04/12/24 07:41 y Review of Systems Review of Systems: As per HPI. Yes all other systems are reviewed and are negative Constitutional: Constitutional: Reports as per HPI [facility] Past Medical History Medical History COPD (chronic obstructive pulmonary disease) Subcutaneous mass Trigger finger, left Anemia Heart murmur Age related osteoporosis COPD (chronic obstructive pulmonary disease) Macular degeneration Hypothyroidism Surgical History History of hemiarthroplasty of left hip History of carpal tunnel release Social History Social History Household Members: None Household Members Other:: Daughter lives upstairs Housing: House Are you a primary director of career resources to a significant other at home: No Do you presently have visiting nurse or other home services: No Alcohol intake: never Patient Tobacco Use Status: Former Tobacco user Advance Directives: No Advance Directives Information Provided: Yes service: No Current occupational status: retired Current occupation: Right Handed Physical Exam ED Vital Signs: Vital Signs - 24 hr 04/12/24 07:40 Temperature 98.2 F Pulse Rate 82 Respiratory Rate 16 Blood Pressure 151/71 H Pulse Oximetry 96 Oxygen Delivery Method Room Air BMI result Body Mass Index 22.2 Vital signs have been reviewed and appear to be correct. Blood pressure normal. Heart rate normal. Respiratory rate normal. Temperature normal. Oxygen saturation normal. Const General: cooperative, healthy appearing and no acute distress Orientation/consciousness: oriented to person, oriented to place, oriented to time and patient oriented x3 Limitations: no limitations HENMT Head: Yes normocephalic and Yes atraumatic Ears: external ears normal General nose exam: Normal external nose present Face and sinus: Yes face symmetric Mouth: oropharynx normal and moist mucous membranes Throat: Yes uvula midline Eyes Pupils: Equal, round and reactive pupils present Neck Neck: Yes normal visual inspection and Yes supple Resp Effort & Inspection: normal respiratory effort and able to speak in complete sentences Auscultation: clear to auscultation bilaterally Cardio Rate: regular rate Rhythm: regular rhythm Heart sounds: S1 normal heart sound present and S2 normal heart sound present GI Palpation (GI): Soft to palpation and nontender Auscultation: normoactive bowel sounds General: Yes no CVA tenderness Back/Spine/Pelvis Back: no CVA tenderness Skin General skin exam: elasticity normal and turgor normal Neuro General: oriented to person, oriented to place, oriented to time, patient oriented x3, moves all extremities, no focal motor deficits and CN's II-XI intact bilaterally Cranial nerves: Yes Equal, round and reactive pupils present Cognition (Neuro): normal cognition Extrem General: Yes full ROM, Yes no pedal edema and Yes no calf tenderness Elbow/forearm/wrist images: 1. large skin tear, no active bleeding Psych Mental Status: mental status grossly normal Affect: normal affect Thought process: Normal thought process present Medical Decision Making Medical Decision Making MDM Narrative: Patient is an 88-year-old female with history of COPD, anemia, hypothyroidism presenting to the emergency department with complaint of skin tear to right forearm. On exam patient is awake, A+Ox3, VS WNL, afebrile, normal neurological exam without focal deficits, physical exam findings as above. Given reported symptoms and physical exam findings, initial differential includes skin tear/avulsion. Injury occurred just prior to arrival. Wound cleansed with betadine and saline which was extremely uncomfortable for patient. Lidocaine jelly ordered and applied to area. Area again thoroughly cleansed with saline and betadine. Skin edges approximated and secured with steri-strips. Nonadherent dressing and kerlix applied. Tdap updated. Will send new prescription for mupirocin. Discussed with patient that the steri-strips will fall off on their own. Dressing change instructions and return precautions discussed with patient and daughter who both verbalized understanding of and agreement with plan. Differential Diagnosis Differential Diagnoses: The differential diagnosis associated with the presentation includes As per [facility] External Record Review External record reviewed: Inpatient record, Office record and Outpatient record Prescription Management I considered prescription management with: Antibiotic Discharge Plan Discharge Clinical Impression: Skin tear of forearm without complication Patient Disposition: Home, Self-Care Instructions: Skin Tear (ED), Steristrips (ED) Additional Instructions: You were evaluated in treated in the emergency department today for a skin tear. Please keep this dressing in place for the next 48 hours, then change the dressing daily and assess the wound daily for signs of infection. Please follow-up with your primary care provider or return to the emergency department if this occurs. You can apply the mupirocin ointment as directed. Do not pick or peel the Steri-Strips, allow them to fall off on their own. Your tetanus vaccine (Tdap) was updated at today's visit. Return to the emergency department if you develop increased swelling, redness, thick yellow drainage, fevers or any other concerning symptoms. Prescriptions: New mupirocin 2 % ointment 1 appl topical BID Qty: 15 0RF No Action Calcium 600 + D(3) 600 mg calcium- 200 unit Capsule 1 cap PO BEDTIME albuterol sulfate 2.5 mg /3 mL (0.083 %) solution for nebulization 1 amp inhalation Q4H PRN (Reason: wheezing) budesonide-formoterol [Symbicort] 160-4.5 mcg/actuation HFA aerosol inhaler 2 puff inhalation BID ascorbic acid (vitamin C) [Vitamin C] 500 mg tablet 1 tab PO DAILY ferrous gluconate 324 mg (37.5 mg iron) tablet 1 tab PO DAILY cyanocobalamin (vitamin B-12) 1,000 mcg Tablet 1,000 mcg PO DAILY folic acid 1 mg Tablet 1 mg PO DAILY artifi.tears(hypromellose)(PF) 0.3 % Drops 2 drp OPHTHALMIC (EYE) Q6H PRN (Reason: Dry Eye(S)) aspirin 81 mg Capsule 81 mg PO DAILY PreserVision AREDS-2 1 cap PO BID albuterol sulfate 90 mcg/actuation HFA aerosol inhaler 2 puff PO TID omeprazole 20 mg capsule,delayed release(DR/EC) 20 mg PO BID levothyroxine 75 mcg tablet 75 mcg PO DAILY atorvastatin 40 mg tablet 40 mg PO BEDTIME amlodipine 5 mg tablet 5 mg PO DAILY trimethoprim 100 mg tablet 100 mg PO DAILY Hold Instructions: Resume on 11/09/22. Print Language: Burundian
[2024-04-12] MEDS: Diphth,Pertus(ACell),Tet Adult 0.5 ML SYRINGE IM (10:01)
[2024-04-12] MEDS: Lidocaine HCl 2 % Jelly 5 ML TUBE 1 APPL TOPICAL (10:04)
[2024-04-12 10:41] VITALS: BP 159/65; PULSE 73; RESP 18; TEMP 36.6; O2SAT 96
== END 2024-04-12 10:43 | disposition home or self-care (01) ==
PROVIDERS: Emergency Provider Emergency Medicine; PCP Internal Medicine
DX: S51.811A Laceration without foreign body of right forearm, initial encounter (principal); X58.XXXA Exposure to other specified factors, initial encounter; Y93.9 Activity, unspecified; Y92.89 Other specified places as the place of occurrence of the external cause; Y99.9 Unspecified external cause status; D64.9 Anemia, unspecified; Z79.899 Other long term (current) drug therapy; Z23 Encounter for immunization
CPT/HCPCS: 90471; 90715; 99283; 99284

== ENCOUNTER 2024-05-01 06:56 | Outpatient (REF) | payer MEDICARE, SELFPAY ==
[2024-05-01 10:19] LABS: MANUAL DIFF FLAG NO
[2024-05-01 10:32] LABS: Basophils Absolute Auto 0.1 X10*3/uL (0.0-0.2); Basophils Percent Auto 0.7 % (0-2); Eosinophils Absolute Auto 0.4 X10*3/uL (0.0-0.4); Eosinophils Percent Auto 4.4 % (0-4); Hematocrit 44.7 % (37.0-47.0); Hemoglobin 14.4 g/dl (12.0-16.0); Imm Gran Abs Auto 0.02 X10*3/uL (0.00-0.03); Imm Gran Pct Auto 0.2 % (0.0-0.4); Lymphocytes Absolute Auto 1.6 X10*3/uL (1.2-4.9); Lymphocytes Percent Auto 18.6 % (20-40); Mean Corpuscular HGB Conc 32.2 g/dl (31.0-35.0); Mean Corpuscular Hemoglobin 31.9 pg (27.0-33.0); Mean Corpuscular Volume 98.9 fL (80.0-98.0); Mean Platelet Volume 11.3 fL (9.4-12.3); Monocytes Absolute Auto 0.7 X10*3/uL (0.1-1.2); Neutrophils Absolute Auto 5.9 x10*3/uL (2.0-8.3); Neutrophils Percent Auto 68.1 % (45-73); Platelet Count 238 X10*3/uL (160-400); Red Blood Count 4.52 X10*6/uL (4.20-5.50); Red Cell Distribution Width 12.8 % (11.0-16.0); White Blood Count 8.7 X10*3/uL (4.8-10.8)
[2024-05-01 10:48] LABS: Estimated Average Glucose 100 mg/dL; Hemoglobin A1c % 5.1 % (<6.0)
[2024-05-01 11:03] LABS: Alanine Aminotransferase 22 U/L (0-31); Alkaline Phosphatase 107 U/L (39-117); Anion Gap 15 (12-20); Aspartate Amino Transferase 27 U/L (5-31); Bilirubin Total 0.5 mg/dL (0.0-1.0); Blood Urea Nitrogen 13 mg/dL (9-16); Calcium 9.9 mg/dL (8.4-10.2); Carbon Dioxide 25 mmol/L (22-29); Chloride 106 mmol/L (96-108); Cholesterol 141 mg/dL (<200); Estimated Glomerular Filt Rate > 60; Glucose Random 93 mg/dL (60-115); HDL Cholesterol 48 mg/dL (>40); LDL Cholesterol Calculated 83 mg/dL (<100); Magnesium 2.1 mg/dL (1.6-2.6); Potassium 4.2 mmol/L (3.3-5.1); Sodium 142 mmol/L (135-145); Triglycerides 54 mg/dL (<150)
[2024-05-01 11:04] LABS: Thyroid Stimulating Hormone 0.95 uIU/mL (0.32-4.0)
== END 2024-05-01 06:57 | disposition home or self-care (01) ==
LOC: HO.HMGCLDS 06:56
PROVIDERS: PCP Internal Medicine; Visit Provider Internal Medicine
DX: E03.9 Hypothyroidism, unspecified (principal); I10 Essential (primary) hypertension; R73.01 Impaired fasting glucose; E78.00 Pure hypercholesterolemia, unspecified
CPT/HCPCS: 36415; 80053; 80061; 83036; 83735; 84443; 85025

== ENCOUNTER → 2024-08-01 10:16 | Outpatient (RCR) | payer MEDICARE, MEDICAID, SELFPAY ==
--- NOTE | 2020-09-13 11:20 | P.PNHO_ITS ---
Medical Summary - Medical Summary Chief complaint: Follow-up Medical Summary: Diagnosis: Iron deficiency anemia Diagnosed with anemia secondary to acute blood loss in early 2016 after hip art hroplasty. She received 2 units blood transfusion for hemoglobin 7.5 in February 2017. Hemoglobin gradually declined to 9.1 in January 2018. Started on iron supplementation in January. Underwent both endoscopy and colonoscopy in 2018 which was negative for any GI source of bleeding. Interval History Interval history: Patient is here in follow-up. She is doing okay, about the same. She reports chronic fatigue. Her appetite has been somewhat poor since her . She denies any heartburn or reflux symptoms. No change in bowel habits. No hematochezia or melena. No abnormal loss of weight. She saw her PCP yesterday and is scheduled for some blood work end of next month. She stopped taking iron completely but tolerated it quite well when she was taking iron pills once a day. Review of Systems - Constitutional Reports as per HPI, Reports no additional constitutional complaints - Cardiovascular Reports no additional cardiovascular complaints, Denies chest pain with activity - Respiratory Reports no additional respiratory complaints, Denies chest congestion, Denies dyspnea - Gastrointestinal Reports as per HPI [facility] Medical History: Medical History (Last Updated 09/10/20 @ 10:41 by Sara Timmons [facility]) Age related osteoporosis Anemia COPD (chronic obstructive pulmonary disease) Heart murmur Hypothyroidism Macular degeneration Trigger finger, left Surgical History: Surgical History (Last Updated 09/10/20 @ 10:41 by Sara Timmons [facility]) History of carpal tunnel release History of hemiarthroplasty of left hip Smoking status: Former smoker Home Medications and Allergies Home Medications Medication Instructions Recorded Confirmed Type albuterol sulfate 90 mcg/actuation 2 puff PO Q6H PRN 08/23/20 09/13/20 History aerosol inhaler atorvastatin 40 mg tablet 40 mg PO DAILY 08/23/20 09/13/20 History budesonide-formoterol HFA 160 1 inh INHALATION DAILY 08/23/20 09/13/20 History mcg-4.5 mcg/actuation aerosol inhaler levothyroxine 75 mcg tablet 75 mcg PO DAILY 08/23/20 09/13/20 History nitrofurantoin 1 cap PO BID 08/23/20 09/13/20 History monohydrate/macrocrystals 100 mg capsule omeprazole 20 mg capsule,delayed 20 mg PO BID 08/23/20 09/13/20 History release trimethoprim 100 mg tablet 100 mg PO DAILY 08/23/20 09/13/20 History calcium carbonate-vitamin D3 1 cap PO DAILY 09/13/20 09/13/20 History [Calcium 600 + D(3)] vitamin [id number] acid 1 tab PO DAILY 09/13/20 09/13/20 History Allergies Allergy/AdvReac Type Severity Reaction Status Date / Time Penicillins Allergy Mild UNKNOWN Verified 09/13/20 11:59 Sulfa (Sulfonamide Allergy Mild UNKNOWN Verified 09/13/20 11:59 Antibiotics) penicillin V Allergy Unknown rash Verified 09/13/20 11:59 tiotropium Allergy Unknown unknown Verified 09/13/20 11:59 [Spiriva with HandiHaler] alendronate sodium [Fosamax] AdvReac Unknown GI upset Verified 09/13/20 11:59 simvastatin AdvReac Unknown hepatoxicit Verified 09/13/20 11:59 y Exam - Constitutional Absent: no acute distress - Routine HEENT Exam Head: Present: normal inspection Eye: Present: EOMI - Routine Neck Exam Absent: lymphadenopathy - Routine Respiratory Exam Present: CTAB - Routine Cardiovascular Exam Cardiovascular: Present: S1, S2 Data - Labs CBC & Chem 7: 09/13/20 11:30 Labs: Abnormal Labs 09/13/20 11:30 RBC 4.05 L Hgb 11.9 L Lymph % (Auto) 15.8 L Progress Note: A/P (1) Iron deficiency anemia Status: Acute Assessment and plan: 1. This is a pleasant 83-year-old female with iron deficiency anemia. Since she stopped taking oral iron, her anemia has recurred. I have asked her to start taking once a day iron supplementation. Vitamin-C/orange juice can enhance absorption. 2. Vitamin B12 deficiency. Negative Intrinsic factor antibody. She is on oral B12. Vitamin B12 level is normal. Follow-up in 4 months. - Time Spent With Patient Total time spent is greater than 50% in coordination of care (as documented) at patient's floor/unit and/or counseling patient: 15 - 24 minutes
--- NOTE | 2020-09-13 11:50 | MHC.HEMONC ---
Patient had labs drawn but was unable to be seen for appointment.
[2020-09-13 11:55] VITALS: BP 172/79; PULSE 71; RESP 20; TEMP 36.6; O2SAT 97
[2020-09-13 11:55] LABS: MANUAL DIFF FLAG NO
[2020-09-13 11:56] VITALS: BMI 23.4
[2020-09-13 12:05] LABS: Basophils Percent Auto 0.5 % (0-2); Eosinophils Absolute Auto 0.3 X10*3/uL (0.0-0.4); Eosinophils Percent Auto 3.2 % (0-4); Hematocrit 37.8 % (37-47); Hemoglobin 11.9 g/dl (12.0-16.0); Imm Gran Abs Auto 0.03 X10*3/uL (0.00-0.03); Imm Gran Pct Auto 0.4 % (0.0-0.4); Lymphocytes Absolute Auto 1.3 X10*3/uL (1.2-4.9); Lymphocytes Percent Auto 15.8 % (20-40); Mean Corpuscular HGB Conc 31.5 g/dl (31.0-35.0); Mean Corpuscular Hemoglobin 29.4 pg (27.0-33.0); Mean Corpuscular Volume 93.3 fL (80-98); Mean Platelet Volume 10.9 fL (9.4-12.3); Monocytes Absolute Auto 0.8 X10*3/uL (0.1-1.2); Monocytes Percent Auto 9.4 % (2-11); Neutrophils Absolute Auto 5.8 X10*3/uL (2.0-8.3); Neutrophils Percent Auto 70.7 % (45-73); Platelet Count 200 X10*3/uL (160-400); Red Blood Count 4.05 X10*6/uL (4.20-5.50); Red Cell Distribution Width 13.5 % (11.0-16.0); White Blood Count 8.2 X10*3/uL (4.8-10.8)
[2020-09-13 12:58] LABS: Ferritin 20 ng/mL (10-250)
--- NOTE | 2020-09-13 14:03 | MHC.HEMONC ---
Patient here for follow up appt today. States she feels well and her PCP advised her to stop taking Iron and Vitamin D due to increased Vitamin D level. Labs were drawn, pt seen by .
[2021-01-17 15:07] VITALS: BP 155/72; PULSE 88; RESP 12; TEMP 36.6; O2SAT 97; BMI 23.3
[2021-01-17 15:18] LABS: Basophils Absolute Auto 0.1 X10*3/uL (0.0-0.2); Basophils Percent Auto 0.7 % (0-2); Eosinophils Absolute Auto 0.2 X10*3/uL (0.0-0.4); Eosinophils Percent Auto 2.7 % (0-4); Hematocrit 40.5 % (37-47); Hemoglobin 13.3 g/dl (12.0-16.0); Imm Gran Abs Auto 0.02 X10*3/uL (0.00-0.03); Imm Gran Pct Auto 0.3 % (0.0-0.4); Lymphocytes Absolute Auto 1.5 X10*3/uL (1.2-4.9); Lymphocytes Percent Auto 20.2 % (20-40); MANUAL DIFF FLAG NO; Mean Corpuscular HGB Conc 32.8 g/dl (31.0-35.0); Mean Corpuscular Hemoglobin 31.6 pg (27.0-33.0); Mean Corpuscular Volume 96.2 fL (80-98); Mean Platelet Volume 10.8 fL (9.4-12.3); Monocytes Absolute Auto 0.6 X10*3/uL (0.1-1.2); Monocytes Percent Auto 8.4 % (2-11); Neutrophils Absolute Auto 4.9 X10*3/uL (2.0-8.3); Neutrophils Percent Auto 67.7 % (45-73); Platelet Count 206 X10*3/uL (160-400); Red Blood Count 4.21 X10*6/uL (4.20-5.50); Red Cell Distribution Width 12.9 % (11.0-16.0); White Blood Count 7.3 X10*3/uL (4.8-10.8)
[2021-01-17 15:56] LABS: Iron 96 mcg/dL (30-160); Percent Iron Saturation 27 % (15-50); Total Iron Binding Capacity 359 mcg/dL (228-428); Unsaturated Iron Binding 263 ug/dL
--- NOTE | 2021-01-17 15:58 | P.PNHO_ITS ---
Medical Summary - Medical Summary Date of Service: 01/17/21 Chief complaint: Follow-up Medical Summary: Diagnosis: Iron deficiency anemia Diagnosed with anemia secondary to acute blood loss in early 2016 after hip arthroplasty. She received 2 units blood transfusion for hemoglobin 7.5 in February 2017. Hemoglobin gradually declined to 9.1 in January 2018. Started on iron supplementation in January. Underwent both endoscopy and colonoscopy in 2018 which was negative for any GI source of bleeding. Interval History Interval history: Patient is here in follow-up. She is doing quite well, her only complaint is that she has noticed a change in her bowel habits. Occasionally she gets constipated and sometimes it is frequent and gassy. She reports no blood or black colored stools. She is taking oral iron once a day. She denies any loss of appetite or weight loss. No chest pain, shortness of breath or cough. She received the 1st dose of COVID-19 vaccine. Review of Systems - Constitutional Reports as per HPI, Reports no additional constitutional complaints - Cardiovascular Reports no additional cardiovascular complaints - Respiratory Reports no additional respiratory complaints [facility] Medical History: Medical History (Last Reviewed 01/08/21 @ 08:27 by Sara Timmons [facility]) Age related osteoporosis Anemia COPD (chronic obstructive pulmonary disease) Heart murmur Hypothyroidism Macular degeneration Subcutaneous mass Trigger finger, left Surgical History: Surgical History (Last Reviewed 01/08/21 @ 08:27 by Sara Timmons CMA) History of carpal tunnel release History of hemiarthroplasty of left hip Social History: Social History (Last Reviewed 01/08/21 @ 08:27 by Sara Timmons CMA) Living Situation History: Household Members: None Household Members Other:: Daughter lives upstairs Housing: House Are you a primary assisted living care manager to a significant other at home: No Do you presently have visiting nurse or other home services: No Alcohol History Details: Alcohol intake frequency: a few times a month Tobacco History: Smoking Status: Former smoker Substance Use History: Use of substances other than those prescribed or required for medical reasons : No Occupation Assessmet: Current occupational status: retired Current occupation: Right Handed Smoking status: Former smoker Oncology Screenings - ECOG Performance Status ECOG Performance Status: 1 Home Medications and Allergies Home Medications Medication Instructions Recorded Confirmed Type albuterol sulfate 90 mcg/actuation 2 puff PO Q6H PRN 08/23/20 09/13/20 History aerosol inhaler atorvastatin 40 mg tablet 40 mg PO DAILY 08/23/20 09/13/20 History budesonide-formoterol HFA 160 1 inh INHALATION DAILY 08/23/20 09/13/20 History mcg-4.5 mcg/actuation aerosol inhaler levothyroxine 75 mcg tablet 75 mcg PO DAILY 08/23/20 09/13/20 History omeprazole 20 mg capsule,delayed 20 mg PO BID 08/23/20 09/13/20 History release trimethoprim 100 mg tablet 100 mg PO DAILY 08/23/20 09/13/20 History calcium carbonate-vitamin D3 1 cap PO DAILY 09/13/20 09/13/20 History [Calcium 600 + D(3)] vitamin [id number] acid 1 tab PO DAILY 09/13/20 09/13/20 History Allergies Allergy/AdvReac Type Severity Reaction Status Date / Time Penicillins Allergy Mild UNKNOWN Verified 10/23/20 09:13 Sulfa (Sulfonamide Allergy Mild UNKNOWN Verified 10/23/20 09:13 Antibiotics) penicillin V Allergy Unknown rash Verified 10/23/20 09:13 tiotropium Allergy Unknown unknown Verified 10/23/20 09:13 [Spiriva with HandiHaler] alendronate sodium [Fosamax] AdvReac Unknown GI upset Verified 10/23/20 09:13 simvastatin AdvReac Unknown hepatoxicit Verified 10/23/20 09:13 y Exam Vital signs: Vital Signs Temp 97.8 F 01/17/21 15:07 Pulse 88 01/17/21 15:07 Resp 12 01/17/21 15:07 BP 155/72 H 01/17/21 15:07 Pulse Ox 97 01/17/21 15:07 Intake & Output 01/16/21 01/17/21 01/17/21 18:59 06:59 18:59 Other: Weight 52.4 kg Weight in Grams 55770 Weight 52.4 kg Body Mass Index 23.3 - Constitutional Absent: no acute distress - Routine HEENT Exam Head: Present: normal inspection - Routine Neck Exam Absent: lymphadenopathy - Routine Respiratory Exam Present: CTAB - Routine Cardiovascular Exam Cardiovascular: Present: S1, S2 Data - Labs CBC & Chem 7: 01/17/21 13:51 Labs: 09/13/20 11:30 Complete Blood Count Auto Diff Routine Ferritin Routine 01/17/21 13:51 Complete Blood Count Auto Diff Routine IRON PROFILE Routine Laboratory Last Values WBC 7.3 X10*3/uL (4.8-10.8) 01/17/21 13:51 RBC 4.21 X10*6/uL (4.20-5.50) 01/17/21 13:51 Hgb 13.3 g/dl (12.0-16.0) 01/17/21 13:51 Hct 40.5 % (37-47) 01/17/21 13:51 MCV 96.2 fL (80-98) 01/17/21 13:51 MCH 31.6 pg (27.0-33.0) 01/17/21 13:51 MCHC 32.8 g/dl (31.0-35.0) 01/17/21 13:51 RDW 12.9 % (11.0-16.0) 01/17/21 13:51 Plt Count 206 X10*3/uL (160-400) 01/17/21 13:51 MPV 10.8 fL (9.4-12.3) 01/17/21 13:51 Immature Gran % (Auto) 0.3 % (0.0-0.4) 01/17/21 13:51 Neut % (Auto) 67.7 % (45-73) 01/17/21 13:51 Lymph % (Auto) 20.2 % (20-40) 01/17/21 13:51 [place] % (Auto) 8.4 % (2-11) 01/17/21 13:51 Eos % (Auto) 2.7 % (0-4) 01/17/21 13:51 Baso % (Auto) 0.7 % (0-2) 01/17/21 13:51 Lymph # (Auto) 1.5 X10*3/uL (1.2-4.9) 01/17/21 13:51 [place] # (Auto) 0.6 X10*3/uL (0.1-1.2) 01/17/21 13:51 Eos # (Auto) 0.2 X10*3/uL (0.0-0.4) 01/17/21 13:51 Baso # (Auto) 0.1 X10*3/uL (0.0-0.2) 01/17/21 13:51 Abs Immat Gran (auto) 0.02 X10*3/uL (0.00-0.03) 01/17/21 13:51 Absolute Neuts (auto) 4.9 X10*3/uL (2.0-8.3) 01/17/21 13:51 Absolute Nucleated RBC 0.000 X10*3/uL (0.0-0.012) 01/17/21 13:51 Nucleated RBC % (auto) 0.0 /100WBC (0.0-0.2) 01/17/21 13:51 Iron 96 mcg/dL (30-160) 01/17/21 13:51 TIBC 359 mcg/dL (228-428) 01/17/21 13:51 % Saturation 27 % (15-50) 01/17/21 13:51 Unsat Iron Binding 263 ug/dL 01/17/21 13:51 Ferritin 20 ng/mL (10-250) 09/13/20 11:30 Progress Note: A/P (1) Iron deficiency anemia Status: Chronic Assessment and plan: 1. This is a pleasant 83-year-old female with iron deficiency anemia. Since she stopped taking oral iron, her anemia has recurred. She is on once a day iron supplementation. Vitamin-C/orange juice can enhance absorption. She is experiencing some GI side effects, probably related to oral iron supplements. I have asked her to cut back iron to every other day. She is also planning to see her prosthetic lab technician in the upcoming weeks. 2. Vitamin B12 deficiency. Negative Intrinsic factor antibody. She is on oral B12. Vitamin B12 level is normal. Blood work today looks good. Follow-up in 6 months. - Time Spent With Patient Total time spent is greater than 50% in coordination of care (as documented) at patient's floor/unit and/or counseling patient: 15 - 24 minutes
--- NOTE | 2021-01-17 16:07 | MHC.HEMONCMA ---
Patient present to follow up on anemia. History reviewed, labs drawn and follow up in 8 months scheduled.
[2021-07-15 08:07] LABS: MANUAL DIFF FLAG NO
[2021-07-15 08:11] LABS: Basophils Percent Auto 0.3 % (0-2); Eosinophils Absolute Auto 0.3 X10*3/uL (0.0-0.4); Hematocrit 41.5 % (37-47); Hemoglobin 13.3 g/dl (12.0-16.0); Imm Gran Abs Auto 0.03 X10*3/uL (0.00-0.03); Imm Gran Pct Auto 0.3 % (0.0-0.4); Lymphocytes Absolute Auto 1.4 X10*3/uL (1.2-4.9); Lymphocytes Percent Auto 13.9 % (20-40); Mean Corpuscular Hemoglobin 30.8 pg (27.0-33.0); Mean Corpuscular Volume 96.1 fL (80-98); Mean Platelet Volume 11.1 fL (9.4-12.3); Monocytes Absolute Auto 0.9 X10*3/uL (0.1-1.2); Monocytes Percent Auto 8.6 % (2-11); Neutrophils Absolute Auto 7.4 X10*3/uL (2.0-8.3); Neutrophils Percent Auto 73.9 % (45-73); Platelet Count 188 X10*3/uL (160-400); Red Blood Count 4.32 X10*6/uL (4.20-5.50); Red Cell Distribution Width 13.1 % (11.0-16.0)
[2021-07-15 08:12] VITALS: BP 147/77; PULSE 76; RESP 20; TEMP 36.6; O2SAT 96; BMI 23.8
--- NOTE | 2021-07-15 08:31 | PM.HEMONCPN ---
Medical Summary - Medical Summary Date of Service: 07/15/21 Chief complaint: Follow-up Medical Summary: Diagnosis: Iron deficiency anemia Diagnosed with anemia secondary to acute blood loss in early 2016 after hip arthroplasty. She received 2 units blood transfusion for hemoglobin 7.5 in February 2017. Hemoglobin gradually declined to 9.1 in January 2018. Started on iron supplementation in January. Underwent both endoscopy and colonoscopy in 2018 which was negative for any GI source of bleeding. Interval History Interval history: Patient is here for follow-up. She is doing quite well and has no complaints other than chronic fatigue. Her appetite is good, she thinks she has gained some weight. She denies any complaints such as exertional chest pain, shortness of breath, dizziness or palpitations. She was seen by microfilm equipment inspector, no intervention felt to be necessary at this time. She takes iron supplementation once every other day. She denies any change in bowel habits, hematochezia melena. Review of Systems - Constitutional Reports as per HPI, Reports no additional constitutional complaints [facility] Medical History: Medical History (Last Reviewed 07/15/21 @ 08:13 by Adama Thomas) Age related osteoporosis Anemia COPD (chronic obstructive pulmonary disease) Heart murmur Hypothyroidism Macular degeneration Subcutaneous mass Trigger finger, left Surgical History: Surgical History (Last Reviewed 07/15/21 @ 08:13 by Adama Thomas) History of carpal tunnel release History of hemiarthroplasty of left hip Social History: Social History (Last Reviewed 07/15/21 @ 08:13 by Adama Thomas) Living Situation History: Household Members: None Household Members Other:: Daughter lives upstairs Housing: House Are you a primary furnace caretaker to a significant other at home: No Do you presently have visiting nurse or other home services: No Alcohol History Details: Alcohol intake frequency: a few times a month Substance Use History: Use of substances other than those prescribed or required for medical reasons: No Occupation Assessmet: Current occupational status: retired Current occupation: Right Handed Home Medications and Allergies Home Medications Medication Instructions Recorded Confirmed Type albuterol sulfate 90 mcg/actuation 2 puff PO Q6H PRN 08/23/20 07/15/21 History aerosol inhaler atorvastatin 40 mg tablet 40 mg PO DAILY 08/23/20 07/15/21 History levothyroxine 75 mcg tablet 75 mcg PO DAILY 08/23/20 07/15/21 History omeprazole 20 mg capsule,delayed 20 mg PO BID 08/23/20 07/15/21 History release calcium carbonate-vitamin D3 600 1 cap PO DAILY 09/13/20 07/15/21 History mg calcium-200 unit capsule (Calcium 600 + D(3)) vitamin B12 500 mcg-folic acid 400 1 tab PO DAILY 09/13/20 07/15/21 History mcg tablet albuterol sulfate 1 amp INHALATION Q4H PRN 01/17/21 07/15/21 History albuterol sulfate 90 mcg/actuation 2 puff PO Q6H PRN 01/17/21 07/15/21 History aerosol inhaler (Ventolin HFA) budesonide-formoterol HFA 160 2 puff INHALATION BID 01/17/21 07/15/21 History mcg-4.5 mcg/actuation aerosol inhaler (Symbicort) nitrofurantoin 50 mg capsule 50 mg PO DAILY 07/15/21 07/15/21 History Allergies Allergy/AdvReac Type Severity Reaction Status Date / Time Penicillins Allergy Mild UNKNOWN Verified 04/16/21 08:16 Sulfa (Sulfonamide Allergy Mild UNKNOWN Verified 04/16/21 08:16 Antibiotics) penicillin V Allergy Unknown rash Verified 04/16/21 08:16 tiotropium Allergy Unknown unknown Verified 04/16/21 08:16 [Spiriva with HandiHaler] alendronate sodium [Fosamax] AdvReac Unknown GI upset Verified 04/16/21 08:16 simvastatin AdvReac Unknown hepatoxicit Verified 04/16/21 08:16 y Exam Vital signs: Vital Signs Temp 97.8 F 07/15/21 08:12 Pulse 76 07/15/21 08:12 Resp 20 07/15/21 08:12 BP 147/77 H 07/15/21 08:12 Pulse Ox 96 07/15/21 08:12 Intake & Output 07/14/21 07/15/21 07/15/21 18:59 06:59 18:59 Other: Weight 53.4 kg [place] Weight in Grams 92448 Weight 53.4 kg Body Mass Index 23.8 - Constitutional Absent: no acute distress - Routine HEENT Exam Head: Present: normal inspection - Routine Neck Exam Absent: lymphadenopathy - Routine Respiratory Exam Present: CTAB - Routine Cardiovascular Exam Cardiovascular: Present: S1, S2 Data - Labs CBC & Chem 7: 07/15/21 08:03 Labs: 09/13/20 11:30 Complete Blood Count Auto Diff Routine Ferritin Routine 01/17/21 13:51 Complete Blood Count Auto Diff Routine IRON PROFILE Routine Laboratory Last Values WBC 7.3 X10*3/uL (4.8-10.8) 01/17/21 13:51 RBC 4.21 X10*6/uL (4.20-5.50) 01/17/21 13:51 Hgb 13.3 g/dl (12.0-16.0) 01/17/21 13:51 Hct 40.5 % (37-47) 01/17/21 13:51 MCV 96.2 fL (80-98) 01/17/21 13:51 MCH 31.6 pg (27.0-33.0) 01/17/21 13:51 MCHC 32.8 g/dl (31.0-35.0) 01/17/21 13:51 RDW 12.9 % (11.0-16.0) 01/17/21 13:51 Plt Count 206 X10*3/uL (160-400) 01/17/21 13:51 MPV 10.8 fL (9.4-12.3) 01/17/21 13:51 Immature Gran % (Auto) 0.3 % (0.0-0.4) 01/17/21 13:51 Neut % (Auto) 67.7 % (45-73) 01/17/21 13:51 Lymph % (Auto) 20.2 % (20-40) 01/17/21 13:51 [place] % (Auto) 8.4 % (2-11) 01/17/21 13:51 Eos % (Auto) 2.7 % (0-4) 01/17/21 13:51 Baso % (Auto) 0.7 % (0-2) 01/17/21 13:51 Lymph # (Auto) 1.5 X10*3/uL (1.2-4.9) 01/17/21 13:51 [place] # (Auto) 0.6 X10*3/uL (0.1-1.2) 01/17/21 13:51 Eos # (Auto) 0.2 X10*3/uL (0.0-0.4) 01/17/21 13:51 Baso # (Auto) 0.1 X10*3/uL (0.0-0.2) 01/17/21 13:51 Abs Immat Gran (auto) 0.02 X10*3/uL (0.00-0.03) 01/17/21 13:51 Absolute Neuts (auto) 4.9 X10*3/uL (2.0-8.3) 01/17/21 13:51 Absolute Nucleated RBC 0.000 X10*3/uL (0.0-0.012) 01/17/21 13:51 Nucleated RBC % (auto) 0.0 /100WBC (0.0-0.2) 01/17/21 13:51 Iron 96 mcg/dL (30-160) 01/17/21 13:51 TIBC 359 mcg/dL (228-428) 01/17/21 13:51 % Saturation 27 % (15-50) 01/17/21 13:51 Unsat Iron Binding 263 ug/dL 01/17/21 13:51 Ferritin 20 ng/mL (10-250) 09/13/20 11:30 Progress Note: A/P (1) Iron deficiency anemia Status: Chronic Assessment and plan: 1. This is a pleasant 83-year-old female with iron deficiency anemia probably related to inadequate oral iron absorption. Gastrointestinal workup was negative. Since she stopped taking oral iron, her anemia has recurred. She is on once every other day iron supplementation. Vitamin-C/orange juice can enhance absorption. 2. Vitamin B12 deficiency. Negative Intrinsic factor antibody. She is on oral B12. Vitamin B12 level is normal. Blood work today looks good. Follow-up as needed. - Time Spent With Patient Time Spent with Patient (in minutes): 15
[2021-07-15 08:32] LABS: Iron 91 mcg/dL (30-160)
[2021-07-16 14:57] LABS: Percent Iron Saturation 24 % (15-50); Total Iron Binding Capacity 377 mcg/dL (228-428); Unsaturated Iron Binding 286 ug/dL
== END | disposition home or self-care (01) ==
LOC: HO.ONC 09-13 10:51
PROVIDERS: PCP Internal Medicine; Visit Provider Internal Medicine
DX: D50.9 Iron deficiency anemia, unspecified (principal); E53.8 Deficiency of other specified B group vitamins; Z79.899 Other long term (current) drug therapy
CPT/HCPCS: 36415; 82728; 83540; 85025; 99213

== ENCOUNTER 2024-11-06 16:49 | Emergency (ER) | payer MEDICARE, SELFPAY ==
--- NOTE | ~2024-11-06 | US_ITS ---
EXAMINATION: US TRIPLEX LOWER EXTREMITY, LEFT CLINICAL INFORMATION: Left lower extremity pain and swelling COMPARISON: None available. TECHNIQUE: Color-flow triplex imaging with spectral analysis and compression Doppler were performed on the left lower extremity. FINDINGS: Respiratory variation, normal compression and augmented flow are noted throughout the left lower extremity. The visualized common femoral vein, superficial femoral vein, profunda femoral vein, popliteal vein and midcalf peroneal and posterior tibial venous segments show no evidence of deep venous thrombosis. There is no Cooper's cyst. US/US venous duplex LE LT IMPRESSION: No evidence of deep venous thrombosis involving the left lower extremity. Electronically signed by: Jelani Ny MD 11/06/2024 08:45 PM EST
[2024-11-06 17:07] VITALS: RESP 16; TEMP 36.1; BMI 22.2
--- NOTE | 2024-11-06 17:20 | ED_ITS ---
HPI - General Adult General Chief complaint: Extremity Injury, Lower Stated complaint: ? dvt leg sent by PCP Time Seen by Provider: 11/06/24 19:09 History of Present Illness ED Provider: Dr. Prather HPI narrative: 88 y/o F patient; PMH emphysema, osteoarthritis; presents from home with report of one month of left lower extremity pain, swelling, and redness. The patient states the pain is worse with ambulation. She denies known injury or trauma. She denies: cough/congestion, fever or chills, chest pain, SOB, syncope. She denies history of blood clots. Related Data Home Medications ?Medication ?Instructions ?Recorded ?Confirmed albuterol sulfate 90 mcg/actuation 2 puff PO TID 08/23/20 03/02/23 aerosol inhaler atorvastatin 40 mg tablet 40 mg PO BEDTIME 08/23/20 03/02/23 levothyroxine 75 mcg tablet 75 mcg PO DAILY 08/23/20 03/02/23 omeprazole 20 mg capsule,delayed 20 mg PO BID 08/23/20 03/02/23 release calcium 600 mg (as 1 cap PO BEDTIME 09/13/20 03/02/23 carbonate)-vitamin D3 5 mcg (200 unit) capsule (Calcium 600 + D(3)) albuterol sulfate 2.5 mg/3 mL 1 amp inhalation Q4H PRN wheezing 01/17/21 03/02/23 (0.083 %) solution for nebulization budesonide-formoterol HFA 160 2 puff inhalation BID 01/17/21 03/02/23 mcg-4.5 mcg/actuation aerosol inhaler (Symbicort) PreserVision AREDS-2 1 cap PO BID 08/23/21 03/02/23 aspirin 81 mg capsule 81 mg PO DAILY 08/23/21 03/02/23 amlodipine 5 mg tablet 5 mg PO DAILY 10/13/21 03/02/23 trimethoprim 100 mg tablet 100 mg PO DAILY 09/25/22 03/02/23 artifi.tears(hypromellose)(PF) 0.3 2 drp ophthalmic (eye) Q6H PRN Dry 11/03/22 03/02/23 % eye drops Eye(S) ascorbic acid (vitamin C) 500 mg 1 tab PO DAILY 11/03/22 03/02/23 tablet (Vitamin C) cyanocobalamin (vitamin B-12) 1,000 mcg PO DAILY 11/03/22 03/02/23 1,000 mcg tablet ferrous gluconate 324 mg (37.5 mg 1 tab PO DAILY 11/03/22 03/02/23 iron) tablet folic acid 1 mg tablet 1 mg PO DAILY 11/03/22 03/02/23 Previous Rx's ?Medication ?Instructions ?Recorded mupirocin 2 % topical ointment 1 appl topical BID #15 grams 04/12/24 cefuroxime axetil 500 mg tablet 500 mg PO BID 7 days #14 tabs 11/06/24 Allergies Allergy/AdvReac Type Severity Reaction Status Date / Time Penicillins Allergy Mild UNKNOWN Verified 11/06/24 17:08 Sulfa (Sulfonamide Allergy Mild UNKNOWN Verified 11/06/24 17:08 Antibiotics) penicillin V Allergy Unknown rash Verified 11/06/24 17:08 tiotropium Allergy Unknown unknown Verified 11/06/24 17:08 [Spiriva with HandiHaler] alendronate sodium [Fosamax] AdvReac Unknown GI upset Verified 11/06/24 17:08 simvastatin AdvReac Unknown hepatoxicit Verified 11/06/24 17:08 y Review of Systems 2 Review of Systems: Yes all other systems are reviewed and are negative PMFSH Past Medical History Attestation statement: The following information was validated with the patient. Source: old records reviewed Medical History COPD (chronic obstructive pulmonary disease) Subcutaneous mass Trigger finger, left Anemia Heart murmur Age related osteoporosis COPD (chronic obstructive pulmonary disease) Macular degeneration Hypothyroidism Surgical History History of hemiarthroplasty of left hip History of carpal tunnel release Social History Social History Household Members: None Household Members Other:: Daughter lives upstairs Housing: House Are you a primary youth care worker to a significant other at home: No Do you presently have visiting nurse or other home services: No Alcohol intake: never Patient Tobacco Use Status: Former Tobacco user Advance Directives: No Advance Directives Information Provided: No Do you have a plan to hurt others: No Plan service: No Current occupational status: retired Current occupation: Right Handed Physical Exam ED Vital Signs: Vital Signs - 24 hr 11/06/24 17:07 11/06/24 19:38 Temperature 96.9 F 97.9 F Pulse Rate 70 Respiratory Rate 16 16 Blood Pressure 141/73 H Pulse Oximetry 97 Oxygen Delivery Method Room Air Room Air BMI result Body Mass Index 22.2 Patient is afebrile and hemodynamically stable. Const General: cooperative HENMT Head: Yes normal to inspection and Yes atraumatic Eyes General: appearance normal, both eyes and all related structures Neck Neck: Yes normal visual inspection, Yes full ROM, Yes supple and No tender Chest Chest palpation & inspection: normal inspection of the chest and normal palpation of entire chest wall Resp Effort & Inspection: normal respiratory effort, able to speak in complete sentences, no cough and no respiratory distress Auscultation: clear to auscultation bilaterally Cardio Rate: regular rate Rhythm: regular rhythm GI Inspection: Yes normal to inspection, No Abdominal wall edema and No distended Palpation (GI): Soft to palpation, not firm, nontender, no guarding and not rigid Auscultation: normal bowel sounds Back/Spine/Pelvis Back: No back tenderness Extrem Other: LLE: + edema, + tenderness along posterior calf into base of heel, mildly erythematous skin without induration or fluctuance. NVI. Course Course Course Narrative: This is an RME done by JENNIFER Resendiz: Additional HPI, ROS, PE not included below will be deferred to primary provider. 88 yo f presents w/ concerns she may have a blood clot in her leg redness and pain to her L foot moving up her LUE. Started a few days ago worsening. PCP sent her in for DVT rule out PE- erythema and tenderness to palpation to left foot particularly the dorsal aspect. Normal distal sensation. Normal pulses. Ambulating with steady gait. Reevaluation(s) Reevaluation #1: Patient is afebrile and hemodynamically stable. Reviewed triage work up including labs and US. Labs reviewed. No leukocytosis. Mild transaminitis. US negative. Will start on Cefuroxime 500mg BID for 7 days for possible early cellulitis and recommend patient follow up closely with PCP. Plan: Discharge to home with PCP follow up Return precautions given Medical Decision Making Lab Data 11/06/24 18:19 11/06/24 18:19 Labs: Lab Results 11/06/24 Range/Units 18:19 WBC 7.6 (4.8-10.8) X10*3/uL RBC 3.71 L (4.20-5.50) X10*6/uL Hgb 12.0 (12.0-16.0) g/dl Hct 36.6 L (37.0-47.0) % MCV 98.7 H (80.0-98.0) fL MCH 32.3 (27.0-33.0) pg MCHC 32.8 (31.0-35.0) g/dl RDW 14.4 (11.0-16.0) % Plt Count 246 (160-400) X10*3/uL MPV 10.5 (9.4-12.3) fL Immature Gran % (Auto) 0.5 H (0.0-0.4) % Neut % (Auto) 63.6 (45-73) % Lymph % (Auto) 18.0 L (20-40) % Andrews % (Auto) 12.3 H (2-11) % Eos % (Auto) 4.8 H (0-4) % Baso % (Auto) 0.8 (0-2) % Lymph # (Auto) 1.4 (1.2-4.9) X10*3/uL Andrews # (Auto) 0.9 (0.1-1.2) X10*3/uL Eos # (Auto) 0.4 (0.0-0.4) X10*3/uL Baso # (Auto) 0.1 (0.0-0.2) X10*3/uL Abs Immat Gran (auto) 0.04 H (0.00-0.03) X10*3/uL Absolute Neuts (auto) 4.9 (2.0-8.3) x10*3/uL Absolute Nucleated RBC 0.000 (0.0-0.012) X10*3/uL Nucleated RBC % (auto) 0.0 (0.0-0.2) /100WBC PT 11.7 (10.9-12.4) SEC INR 1.0 (0.9-1.1) Sodium 140 (135-145) mmol/L Potassium 4.2 (3.3-5.1) mmol/L Chloride 108 (96-108) mmol/L Carbon Dioxide 25 (22-29) mmol/L Anion Gap 11 L (12-20) BUN 15 (9-16) mg/dL Creatinine 0.83 (0.5-1.4) mg/dL Estim Creat Clear Calc 31.3 Estimated GFR > 60 Random Glucose 89 (60-115) mg/dL Calcium 9.1 D (8.4-10.2) mg/dL Magnesium 2.0 (1.6-2.6) mg/dL Total Bilirubin 0.4 (0.0-1.0) mg/dL AST 51 H (5-31) U/L ALT 36 H (0-31) U/L Alkaline Phosphatase 107 (39-117) U/L Total Protein 7.0 (6.5-8.0) g/dL Albumin 4.0 (3.5-5.0) g/dL Discharge Plan Discharge Clinical Impression: Leg pain Patient Disposition: Home, Self-Care Prescriptions: New cefuroxime axetil 500 mg tablet 500 mg PO BID 7 Days Qty: 14 0RF No Action Calcium 600 + D(3) 600 mg calcium- 200 unit Capsule 1 cap PO BEDTIME albuterol sulfate 2.5 mg /3 mL (0.083 %) solution for nebulization 1 amp inhalation Q4H PRN (Reason: wheezing) budesonide-formoterol [Symbicort] 160-4.5 mcg/actuation HFA aerosol inhaler 2 puff inhalation BID ascorbic acid (vitamin C) [Vitamin C] 500 mg tablet 1 tab PO DAILY ferrous gluconate 324 mg (37.5 mg iron) tablet 1 tab PO DAILY cyanocobalamin (vitamin B-12) 1,000 mcg Tablet 1,000 mcg PO DAILY folic acid 1 mg Tablet 1 mg PO DAILY artifi.tears(hypromellose)(PF) 0.3 % Drops 2 drp OPHTHALMIC (EYE) Q6H PRN (Reason: Dry Eye(S)) aspirin 81 mg Capsule 81 mg PO DAILY PreserVision AREDS-2 1 cap PO BID mupirocin 2 % ointment 1 appl topical BID Qty: 15 0RF albuterol sulfate 90 mcg/actuation HFA aerosol inhaler 2 puff PO TID omeprazole 20 mg capsule,delayed release(DR/EC) 20 mg PO BID levothyroxine 75 mcg tablet 75 mcg PO DAILY atorvastatin 40 mg tablet 40 mg PO BEDTIME amlodipine 5 mg tablet 5 mg PO DAILY trimethoprim 100 mg tablet 100 mg PO DAILY Print Language: Trinidadian
[2024-11-06 18:31] LABS: MANUAL DIFF FLAG NO
[2024-11-06 18:43] LABS: Basophils Absolute Auto 0.1 X10*3/uL (0.0-0.2); Basophils Percent Auto 0.8 % (0-2); Eosinophils Absolute Auto 0.4 X10*3/uL (0.0-0.4); Eosinophils Percent Auto 4.8 % (0-4); Hematocrit 36.6 % (37.0-47.0); Imm Gran Abs Auto 0.04 X10*3/uL (0.00-0.03); Imm Gran Pct Auto 0.5 % (0.0-0.4); Lymphocytes Absolute Auto 1.4 X10*3/uL (1.2-4.9); Mean Corpuscular HGB Conc 32.8 g/dl (31.0-35.0); Mean Corpuscular Hemoglobin 32.3 pg (27.0-33.0); Mean Corpuscular Volume 98.7 fL (80.0-98.0); Mean Platelet Volume 10.5 fL (9.4-12.3); Monocytes Absolute Auto 0.9 X10*3/uL (0.1-1.2); Monocytes Percent Auto 12.3 % (2-11); Neutrophils Absolute Auto 4.9 x10*3/uL (2.0-8.3); Neutrophils Percent Auto 63.6 % (45-73); Platelet Count 246 X10*3/uL (160-400); Red Blood Count 3.71 X10*6/uL (4.20-5.50); Red Cell Distribution Width 14.4 % (11.0-16.0); White Blood Count 7.6 X10*3/uL (4.8-10.8)
[2024-11-06 18:45] LABS: Prothrombin Time 11.7 SEC (10.9-12.4)
--- OUTSIDE RECORDS SUMMARY | 2024-11-06 18:48 | XMS_ITS | Patient Health Record ---
Author Organization [facility] Address [address] [place] [id number] Care Team Providers Care Validation Consultant Name Role Phone Pipo Barrientos MD Primary Care Provider Maldonado Kline Unavailable [phone] ALLERGIES Allergen (clinical drug ingredient) Drug/Non Drug Allergy documented on EMR Reaction Allergy Type Onset Date Status Sulfa Unknown Drug Allergy Active Penicillin Unknown Drug Allergy Active REASON FOR REFERRAL No Information MEDICATIONS Medication SIG (Take, Route, Frequency, Duration) Notes Start Date End Date Status Symbicort 160-4.5 MCG/ACT 2 puffs Inhala tion Twice a day Active Calcium 600 600 MG 1 tablet Orally once a day Active tylenol - as directed Oral prn Active Pravastatin Sodium 40mg Not-Taking Levothyroxine Sodium 75mg 1 tablet Orall y Once a day Active Fish Oil Not-Taking Atorvastatin Calcium 40 MG 1 tablet Orally Once a day Active Aspirin Adult Low Dose 81 MG 1 tablet Orally Once a day Active Stool Softener Once a day Acti ve Ventolin HFA 108 (90 Base) MCG/ACT 1 puff as needed Inhalation every 6 hours Active ProAir HFA 108 (90 Base) MCG/ACT 2 puffs as needed Inhalation every 6 hrs Active amLODIPine Besylate 5 MG TAKE ONE TABLET DAILY Diagnosis Unavailable Oral for 90 Active Trimethoprim 100 MG 1 tablet Orally Once a day Active Omeprazole 20 MG TAKE ONE CAPSULE BY MOUTH TWICE DAILY Diagnosis Unavailable Oral for 30 Active albuterol 83 1 tab Oral NEBULIZER Active Multivitamins Active PreserVision AREDS 2 1 1 CAPSULE Orally ONCE A DAY Active Vitamin B12 Active Omeprazole 20 MG 1 capsule Orally BID Active IMMUNIZATIONS Vaccine Route Administration Date Status Comme nts Influenza Unknown 07/23/2015 Administered Influenza Unknown 07/23/2017 Administered Influenza Unknown 07/23/2018 Administered Influenza Unknown 07/23/2020 Administered SOCIAL HISTORY Sex Assigned At : Social History Observation Description Sex Assigned At Unknown PROBLEMS Problem Type ICD Code Onset Dates Problem Status W/U Status Risk SNOMED Code Notes Problem Calculus of gallbladder without cholecystitis without obstruction (K80.20) Active confirmed 334032583 Problem Gastroesophageal reflux disease with esophagitis (K21.0) Active confirmed 909141264 Problem Elevated liver enzymes (R74.8) Active confirmed 429839446 Problem Fatty liver (K76.0) Active confirmed 19 4786460 Problem Vitamin B12 deficiency (E53.8) Active confirmed 848723129 Problem Constipation, unspecified constipation type (K59.00) Active confirmed 80059988 Problem Iron deficiency anemia, unspecified iron deficiency anemia type (D50.9) Active confirmed 23477121 Problem Anemia, unspecified type (D64.9) Active confirmed 241111754 Problem Irritable bowel syndrome, unspecified type (K58.9) Active confirmed 33694942 PLAN OF TREATMENT Pending Test Test Name Order Date CBC w DIFF 02/24/2018 NUC HIDA SCAN 12/03/2012 Future Test Test Name Order Date UPPER GI ENDOSCOPY 11/25/2012 UPPER GI ENDOSCOPY 02/24/2018 COLONOSCOPY 02/24/2018 Insurance Providers Payer Name Payer Address Payer Phone Subscriber Number Group Number Insured Name Patient Relationship to Insured Coverage Start Date Coverage End Date MEDICARE OF [place] [address] [facility] [place] [address] [id number] ZAKIA KUMAR Self - patient is the insured [employer] ATT[employer] CLAIMS [address] [place] [address] [phone] [id number] ZAKIA KUMAR Self - patient is the insured MEDICAL (GENERAL) HISTORY Medical History History ICD Code Hyperlipidemia Hypothyroidism COPD Denies VT,DM,CVA,renal disease Diverticulosis Chronic UTI's GERD--EGD in 12/2012 with ero sive esophagitis and a small to moderate-sized HH--biopsies neg for Cm's esophagus Negative colonoscpy with Dr. Peña in 08 02 Tiny gallstones on U/S, but normal HIDA scan 2012 Polymyalgia rheumatica Peripheral vascular disease--LE stent-Dr Kayli Hart at [facility] Arthritis Anemia 2017---03/2018 EGD--la rge HH and normal duodenal biopsies--no esophagitis; normal colonoscopy except for a small AVM Surgical History Surgery Date(Month/Year) Appendectomy Carpal tunnel surgery bilateral Broken right femur 2000 Breast cysts Broken wrist--bilateral Fx right hip surgery in 06/2016 and Fx le ft hip in 09/2016 Partial left hip replacement surgery 02/21 017
[2024-11-06 18:59] LABS: Alanine Aminotransferase 36 U/L (0-31); Alkaline Phosphatase 107 U/L (39-117); Anion Gap 11 (12-20); Aspartate Amino Transferase 51 U/L (5-31); Bilirubin Total 0.4 mg/dL (0.0-1.0); Blood Urea Nitrogen 15 mg/dL (9-16); Calcium 9.1 mg/dL (8.4-10.2); Carbon Dioxide 25 mmol/L (22-29); Chloride 108 mmol/L (96-108); Creatinine Clr Calc Pharmacy 31.3; Estimated Glomerular Filt Rate > 60; Glucose Random 89 mg/dL (60-115); Potassium 4.2 mmol/L (3.3-5.1); Sodium 140 mmol/L (135-145)
[2024-11-06 19:38] VITALS: BP 141/73; PULSE 70; RESP 16; TEMP 36.6; O2SAT 97
[2024-11-06] MEDS: cefuroxime axetiL 500 MG TABLET PO (21:00)
[2024-11-06 21:01] VITALS: BP 142/74; PULSE 86; RESP 16; TEMP 37.1; O2SAT 95
[2024-11-06 21:05] VITALS: BP 142/74; PULSE 86; RESP 16; TEMP 37.1; O2SAT 95
== END 2024-11-06 21:06 | disposition home or self-care (01) ==
PROVIDERS: Physician Assistant; Emergency Provider Emergency Medicine; PCP Internal Medicine
DX: M79.605 Pain in left leg (principal); R60.0 Localized edema; Z79.899 Other long term (current) drug therapy
CPT/HCPCS: 36415; 80053; 83735; 85025; 85610; 93971; 99284